=== PATIENT | female | born 1990 | race Caucasian/White ===

== ENCOUNTER 2020-11-15 18:37 | Emergency (ER) | payer OTHER ==
[~2020-11-15] VITALS: Ht 162.6 cm; Wt 68.0 kg
[2020-11-15 18:48] VITALS: BP 127/96
--- NOTE | 2020-11-15 18:48 | NUR ---
pt self presents to ed w/ L wrist laceration stating she was "feeling sad." and suicidal for 2 weeks now. denies hi. stable vitals. awaiting md forrest.
--- NOTE | 2020-11-15 18:55 | NUR ---
jonathonp pa at bedside for eval
[2020-11-15] MEDS ORDERED: TDAP [DIPH/PERTUSSIS/TET] 0.5 ML VIAL IM ONE ×2 (19:00→19:28)
--- NOTE | 2020-11-15 19:11 | NUR ---
rn labor and delivery at bedside for blood draw.
[2020-11-15 19:13] LABS: BASOPHILS # (AUTO) 0.1 /CMM (0.0-0.2); EOSINOPHILS % (AUTO) 4.2 % (0.0-6.0); HEMATOCRIT 41 % (33-45); HEMOGLOBIN 14.3 g/dL (11.5-14.8); LYMPHOCYTES # (AUTO) 2.6 /CMM (0.8-4.8); MEAN CORPUSCULAR HGB CONC 35 g/dl (31.0-36.0); MEAN CORPUSCULAR VOLUME 96 fL (82-100); MONOCYTES # (AUTO) 0.5 /CMM (0.1-1.30); MONOCYTES % (AUTO) 6.4 % (2.0-12.0); NEUTROPHILS # (AUTO) 3.9 /CMM (1.8-8.9); NEUTROPHILS % (AUTO) 53.4 % (43.0-81.0); PLATELET COUNT (AUTO) 339 /CMM (150-450); RED BLOOD CELL COUNT(AUTO) 4.29 MIL/uL (4.0-5.2); WHITE BLOOD COUNT (AUTO) 7.3 K/uL (4.3-11.0)
[2020-11-15 19:29] LABS: ACETAMINOPHEN < 10 ug/ml (10-30); ALANINE AMINOTRANSFERASE 38 U/L (12-78); ALBUMIN 4.2 g/dL (3.4-5.0); ALCOHOL, BLOOD 100 mg/dL (0-0); ALKALINE PHOSPHATASE 70 U/L (46-116); ASPARTATE AMINOTRANSFERASE 18 U/L (15-37); BILIRUBIN,DIRECT 0.1 mg/dL (0.0-0.2); BILIRUBIN,TOTAL 0.2 mg/dL (0.2-1.0); CALCIUM, SERUM 9.2 mg/dL (8.5-10.1); CARBON DIOXIDE 23 mmol/L (21-32); CHLORIDE 104 mmol/L (98-107); CREATININE 0.8 mg/dL (0.6-1.3); GLUCOSE 82 mg/dL (74-106); POTASSIUM 3.8 mmol/L (3.5-5.1); SODIUM SERUM 138 mmol/L (136-145); TOTAL PROTEIN, SERUM 7.3 g/dL (6.4-8.2); UREA NITROGEN, BLOOD 14 mg/dL (7-18)
--- NOTE | 2020-11-15 19:36 | NUR ---
urine collected and taken it to the lab.
[2020-11-15 19:43] LABS: BILIRUBIN,URINE Negative (NEGATIVE); COLOR,URINE YELLOW (YELLOW); LEUKOCYTE ESTERASE ,URINE Negative (NEGATIVE); NITRITE, URINE Negative (NEGATIVE); PROTEIN,URINE Negative (NEGATIVE); UGLUCOSE Negative (NEGATIVE); UROBILINOGEN,URINE 0.2 EU/dL (0.2)
--- NOTE | 2020-11-15 19:45 | NUR ---
pt natalie. zewayne pa made aware. will contact family and [employer].
--- NOTE | 2020-11-15 19:50 | NUR ---
NOTED PT NOT IN ROOM. SECURITY CALLED AND NOTIFIED REGARDING PT ELOPEMENT. WILL CALL [employer] TO NOTIFY OF PT ELOPEMENT.
[2020-11-15 19:55] LABS: BACTERIA,URINE Rare /HPF (None Seen); SQUAMOUS EPITHELIAL CELL,UR 0-2 /HPF (None Seen); WBC,URINE 0-2 /HPF (0-3)
--- NOTE | 2020-11-15 20:02 | NUR ---
called mother garcia, informed about patient leaving the ED. states will call patient and ask to return to ED.
--- NOTE | 2020-11-15 20:04 | NUR ---
CALLED [facility], SPOKE TO [employer] [phone], WILL DISPATCH UNIT TO PT APT ON [facility]
--- NOTE | 2020-11-15 20:25 | NUR ---
PT CALLED AND STATES "MY MOM CALLED ME TO GO BACK TO THE HOSPITAL BECAUSE [employer] WAS TOLD I LEFT" INSTRUCTED PT TO RETURN TO HOSPITAL FOR FURTHER EVALUATION. RISK AND BENEFITS EXPLAINED. PT REFUSED. TITI SAUNDERSAN ON THE PHONE WITH PT REGARDING PLAN OF CARE.
--- NOTE | 2020-11-15 23:16 | NUR ---
PER [employer] THEY WENT TO PT'S HOUSE AND [facility] WAS CONTACTED BY THEM AND PT DOES NOT MEET CRITERIA FOR 5150 HOLD.
== END 2020-11-15 23:16 | disposition left against medical advice (07) ==
LOC: ER 18:47
DX: S61.512A Laceration without foreign body of left wrist, initial encounter (principal); R45.851 Suicidal ideations; F32.9 Major depressive disorder, single episode, unspecified; Z60.2 Problems related to living alone; X78.8XXA Intentional self-harm by other sharp object, initial encounter; Y93.89 Activity, other specified; Y92.89 Other specified places as the place of occurrence of the external cause; Y99.8 Other external cause status
CPT/HCPCS: 36415; 80048; 80076; 80299; 80307; 80320; 81001; 84703; 85025; 90471; 90715; 99285; A6403; G0480